=== PATIENT | female | born 1970 | race Caucasian/White ===

== ENCOUNTER 2019-07-08 19:34 | Emergency (ER) | payer OTHER ==
[~2019-07-08] VITALS: Ht 157.5 cm; Wt 85.3 kg
[~2019-07-08 19:34] MED LIST: ALBU.083IS IH; ALBU90I INH; ALBU90OI INH; ALBU90OI6 INH; AZIT250 PO; Albuterol Sulf8.5 GM PO; BUSP10; BUSP15 PO; CEPH500 PO; DILT120; Duoneb 2.5-0.5 M3 ML INH; FLUSAL1005 IH; FLUSAL2505 PO; GUAI100SY; GUAI600T33 PO; HYDACE5 PO; HYDR1TAB94 PO; LEVFLO250 PO; LEVSOD100; LEVSOD100 PO; LEVSOD112 PO; LEVSOD125 PO; LORA10 PO; LORA2 PO; MONT10T PO; MORP10S PO; MULVITMINE; NAPR550 PO; NICO7 TOP; Norco 5-325 Ta1 EACH PO; OXYACE5T PO; PRED10; PRED20 PO; PROC10 PO; Prednisone20 MG PO; Prilosec20 MG PO; RANI150 PO; RXHYD5325 PO; RXHYDACE PO; RXNAPNA550 PO; SULTRIDS PO; TRAM50 PO; TRIAOI IH; Voltaren100 GM TP; Zofran Odt4 MG SL; [UNRECOGNIZED DRUG - OTHER]
[2019-07-08 21:21] LABS: BASOPHILS ABSOLUTE AUTO 0.07 K/mm3 (0.00-0.23); BASOPHILS PERCENT AUTO 1 % (0-2); EOSINOPHILS ABSOLUTE AUTO 0.26 K/mm3 (0.00-0.68); EOSINOPHILS PERCENT AUTO 3 % (0-6); Hematocrit 27.3 % (33.0-51.0); Hemoglobin 7.9 g/dL (11.5-16.0); IMMATURE GRAN ABSOLUTE AUTO 0.03 K/mm3 (0.00-0.10); IMMATURE GRAN PERCENT AUTO 0 % (0-1); LYMPHOCYTES ABSOLUTE AUTO 2.69 K/mm3 (0.84-5.20); LYMPHOCYTES PERCENT AUTO 29 % (21-46); MONOCYTES ABSOLUTE AUTO 0.97 K/mm3 (0.16-1.47); MONOCYTES PERCENT AUTO 10 % (4-13); Mean Corpuscular HGB 20.2 pg (26.0-34.0); Mean Corpuscular HGB Conc 28.9 g/dL (31.5-36.5); Mean Corpuscular Volume 70 fL (80-100); Mean Platelet Volume 8.8 fL (9.1-12.4); NEUTROPHILS PERCENT AUTO 57 % (41-73); Platelet Count 605 K/mm3 (150-400); RDW Standard Deviation 44.9 fL (35.1-46.3); Red Blood Cell Count 3.92 M/mm3 (3.80-5.20); White Blood Cell Count 9.42 K/mm3 (4.00-11.30)
[2019-07-08 21:43] LABS: Alanine Aminotransfer (ALT/SGP 13 U/L (12-78); Albumin, Blood 2.5 g/dL (3.4-5.0); Albumin/Globulin Ratio 0.5 (0.8-1.8); Alk Phos 76 U/L (50-136); Anion Gap 3 mmol/L (6-16); Aspartate Aminotrans (AST/SGOT 17 U/L (12-37); Bilirubin, Total 0.2 mg/dL (0.1-1.0); Blood Urea Nitrogen 10 mg/dL (8-24); Bun/Creatinine Ratio 15.5 (12.0-20.0); CO2, Blood 27 mmol/L (21-32); Calcium, Blood 8.5 mg/dL (8.5-10.1); Chloride, Blood 105 mmol/L (98-108); Creatinine, Blood 0.65 mg/dL (0.40-1.00); Globulin, Blood 5.3 g/dL (2.2-4.0); Glomerular Filtration Rate >60 (60-); Glucose, Blood 74 mg/dL (70-99); Potassium, Blood 3.4 mmol/L (3.5-5.5); Sodium, Blood 135 mmol/L (136-145); Total Protein, Blood 7.8 g/dL (6.4-8.2); Troponin I <0.015 ng/mL (0.000-0.040)
[2019-07-08 22:18] LABS: U Amphetamine Screen DETECTED; U Barbituate Screen Not Detected; U Benzodiazapine Screen Not Detected; U Buprenorphine Screen Not Detected; U Cannabinoids Screen Not Detected; U Cocaine Screen Not Detected; U Methadone Screen Not Detected; U Methamphetamine Screen DETECTED; U Opiates Screen Not Detected; U Oxycodone Screen Not Detected; U Phencyclidine Screen Not Detected; U Propoxyphene Screen Not Detected
[2019-07-09] MEDS ORDERED: Prednisone20 MG PO (00:50)
[2019-07-09] MEDS ORDERED: DOXY100 PO (00:50)
== END 2019-07-09 01:30 | disposition home or self-care (01) ==
LOC: ER 19:34
PROVIDERS: Physician Assistant
DX: J44.1 Chronic obstructive pulmonary disease with (acute) exacerbation (principal); L03.116 Cellulitis of left lower limb; M71.22 Synovial cyst of popliteal space [Baker], left knee; R59.1 Generalized enlarged lymph nodes; F17.210 Nicotine dependence, cigarettes, uncomplicated; Z91.040 Latex allergy status; Z88.6 Allergy status to analgesic agent; Z88.8 Allergy status to other drugs, medicaments and biological substances; Z79.899 Other long term (current) drug therapy
CPT/HCPCS: 36415; 71046; 80053; 83880; 84484; 85025; 93005; 93010; 93971; 94644; 96374; 96375; 99284-25; J1940; J2930

== ENCOUNTER 2020-12-01 01:21 | Emergency (ER) | payer OTHER ==
[~2020-12-01] VITALS: Ht 154.9 cm; Wt 78.0 kg
[~2020-12-01 01:21] MED LIST changes: +DOXY100 PO
[2020-12-01] MEDS ORDERED: Prednisone10 MG PO (01:53)
[2020-12-01] MEDS ORDERED: Vibramycin100 MG PO (03:09)
== END 2020-12-01 03:13 | disposition home or self-care (01) ==
LOC: ER 01:21
DX: L02.413 Cutaneous abscess of right upper limb (principal); J44.9 Chronic obstructive pulmonary disease, unspecified; Z88.6 Allergy status to analgesic agent; Z91.040 Latex allergy status; Z79.899 Other long term (current) drug therapy; Z79.52 Long term (current) use of systemic steroids; Z87.891 Personal history of nicotine dependence
CPT/HCPCS: 10060; 99283-25

== ENCOUNTER 2021-02-24 15:57 | Emergency (ER) | payer OTHER ==
[~2021-02-24] VITALS: Ht 167.6 cm; Wt 86.2 kg
[~2021-02-24 15:57] MED LIST changes: +Prednisone10 MG PO; +Vibramycin100 MG PO
[2021-02-24 16:58] LABS: BASOPHILS ABSOLUTE AUTO 0.09 K/mm3 (0.00-0.23); BASOPHILS PERCENT AUTO 1 % (0-2); EOSINOPHILS ABSOLUTE AUTO 0.18 K/mm3 (0.00-0.68); EOSINOPHILS PERCENT AUTO 1 % (0-6); Hematocrit 36.3 % (33.0-51.0); Hemoglobin 10.5 g/dL (11.5-16.0); IMMATURE GRAN ABSOLUTE AUTO 0.09 K/mm3 (0.00-0.10); IMMATURE GRAN PERCENT AUTO 1 % (0-1); LYMPHOCYTES PERCENT AUTO 21 % (21-46); MONOCYTES ABSOLUTE AUTO 1.55 K/mm3 (0.16-1.47); MONOCYTES PERCENT AUTO 9 % (4-13); Mean Corpuscular HGB 19.2 pg (26.0-34.0); Mean Corpuscular HGB Conc 28.9 g/dL (31.5-36.5); Mean Corpuscular Volume 66 fL (80-100); Mean Platelet Volume 9.7 fL (9.1-12.4); NEUTROPHILS ABSOLUTE AUTO 11.79 K/mm3 (1.96-9.15); NEUTROPHILS PERCENT AUTO 68 % (41-73); Platelet Count 455 K/mm3 (150-400); RDW Coefficient Variation 19.1 % (11.7-14.2); RDW Standard Deviation 43.8 fL (35.1-46.3); Red Blood Cell Count 5.48 M/mm3 (3.80-5.20)
[2021-02-24 17:19] LABS: Alanine Aminotransfer (ALT/SGP 18 U/L (12-78); Albumin, Blood 3.4 g/dL (3.4-5.0); Albumin/Globulin Ratio 0.9 (0.8-1.8); Alk Phos 71 U/L (50-136); Anion Gap 2 mmol/L (6-16); Aspartate Aminotrans (AST/SGOT 9 U/L (12-37); Bilirubin, Total 0.6 mg/dL (0.1-1.0); Blood Urea Nitrogen 17 mg/dL (8-24); Bun/Creatinine Ratio 19.7 (12.0-20.0); CO2, Blood 27 mmol/L (21-32); Calcium, Blood 8.3 mg/dL (8.5-10.1); Chloride, Blood 107 mmol/L (98-108); Creatinine, Blood 0.86 mg/dL (0.40-1.00); Globulin, Blood 3.7 g/dL (2.2-4.0); Glomerular Filtration Rate >60 (60-); Glucose, Blood 82 mg/dL (70-99); Potassium, Blood 3.2 mmol/L (3.5-5.5); Sodium, Blood 136 mmol/L (136-145); Total Protein, Blood 7.1 g/dL (6.4-8.2); Troponin I <0.015 ng/mL (0.000-0.040)
[2021-02-24 20:12] LABS: Source, Urine Clean Catch
[2021-02-24 20:20] LABS: Bilirubin, Urine Neg (Neg); Blood, Urine Neg (Neg); Glucose Qualitative, Urine Neg (Neg); Ketones, Urine 1+ (Neg); Leukocyte Esterase, Urine 2+ (Neg); Nitrite, Urine Neg (Neg); Protein, Urine 1+ (Neg); Urobilinogen, Urine NORM (Normal)
[2021-02-24 20:37] LABS: Appearance, Urine Hazy (Clear); Color, Urine Yellow (P-Yellow)
[2021-02-24 20:55] LABS: Red Blood Cells, Urine Not Seen /hpf (0-2); White Blood Cells, Urine 25-50 /hpf (0-5)
[2021-02-24 20:56] LABS: Amorphous Light (0-Heavy); Bacteria Mod /hpf; Mucus Light (0-Heavy); Squamous Epithelial Cells Mod /hpf (Few)
[2021-02-24] MEDS ORDERED: CEPH500 PO (21:24)
== END 2021-02-24 22:39 | disposition home or self-care (01) ==
LOC: ER 15:57
PROVIDERS: Physician Assistant
DX: N12 Tubulo-interstitial nephritis, not specified as acute or chronic (principal); Z79.52 Long term (current) use of systemic steroids; Z79.899 Other long term (current) drug therapy
CPT/HCPCS: 36415; 71046; 71260; 80053; 81001; 83605; 83880; 84484; 85025; 85379; 87086; 93005; 93010; 93971; 94640; 96365; 99284-25; J0696; Q9967

== ENCOUNTER 2021-07-10 20:49 | Emergency (ER) | payer OTHER ==
[~2021-07-10] VITALS: Ht 154.9 cm; Wt 93.0 kg
== END 2021-07-10 21:09 | disposition left against medical advice (07) ==
LOC: ER 20:49
DX: Z53.21 Procedure and treatment not carried out due to patient leaving prior to being seen by health care provider (principal)

== ENCOUNTER 2022-01-23 21:20 | Inpatient (IN) | payer OTHER ==
[~2022-01-23] VITALS: Ht 154.9 cm; Wt 201.6 kg
[2022-01-23 22:04] LABS: BASOPHILS ABSOLUTE AUTO 0.07 K/mm3 (0.00-0.23); BASOPHILS PERCENT AUTO 0 % (0-2); EOSINOPHILS ABSOLUTE AUTO 0.11 K/mm3 (0.00-0.68); EOSINOPHILS PERCENT AUTO 1 % (0-6); Hematocrit 40.7 % (33.0-51.0); Hemoglobin 12.6 g/dL (11.5-16.0); IMMATURE GRAN PERCENT AUTO 1 % (0-1); LYMPHOCYTES ABSOLUTE AUTO 2.54 K/mm3 (0.84-5.20); LYMPHOCYTES PERCENT AUTO 16 % (21-46); MONOCYTES ABSOLUTE AUTO 1.33 K/mm3 (0.16-1.47); MONOCYTES PERCENT AUTO 9 % (4-13); Mean Corpuscular HGB 25.4 pg (26.0-34.0); Mean Corpuscular Volume 82 fL (80-100); Mean Platelet Volume 10.2 fL (9.1-12.4); NEUTROPHILS ABSOLUTE AUTO 11.42 K/mm3 (1.96-9.15); NEUTROPHILS PERCENT AUTO 74 % (41-73); Platelet Count 302 K/mm3 (150-400); RDW Coefficient Variation 17.9 % (11.7-14.2); RDW Standard Deviation 53.3 fL (35.1-46.3); Red Blood Cell Count 4.96 M/mm3 (3.80-5.20); White Blood Cell Count 15.57 K/mm3 (4.00-11.30)
[2022-01-23 22:23] LABS: Alanine Aminotransfer (ALT/SGP 26 U/L (12-78); Albumin/Globulin Ratio 0.8 (0.8-1.8); Alk Phos 70 U/L (50-136); Anion Gap 7 mmol/L (6-16); Aspartate Aminotrans (AST/SGOT 15 U/L (12-37); Bilirubin, Total 0.4 mg/dL (0.1-1.0); Blood Urea Nitrogen 9 mg/dL (8-24); Bun/Creatinine Ratio 10.9 (12.0-20.0); CO2, Blood 29 mmol/L (21-32); Calcium, Blood 8.6 mg/dL (8.5-10.1); Chloride, Blood 106 mmol/L (98-108); Creatinine, Blood 0.82 mg/dL (0.40-1.00); Globulin, Blood 3.7 g/dL (2.2-4.0); Glomerular Filtration Rate >60 (60-); Glucose, Blood 92 mg/dL (70-99); Potassium, Blood 3.5 mmol/L (3.5-5.5); Sodium, Blood 142 mmol/L (136-145); Total Protein, Blood 6.7 g/dL (6.4-8.2)
[2022-01-24] MEDS ORDERED: GABA100 PO (05:42)
[2022-01-24] MEDS ORDERED: PANT40 PO (05:43)
[2022-01-24] MEDS ORDERED: MONT10T PO (05:44)
--- NOTE | 2022-01-24 17:47 | NUR ---
CARE NOTE THIS NURSE WAS NOTIFIED BY PINO SANTOS CNA THAT PATIENT HAD WOKE UP APPROX 1700 AND REPORTED 10/10 CHEST PAIN. THIS NURSE WENT INTO ROOM, PT REPORTED THAT PAIN HAD SUBSIDED BUT KEPT STATING "THAT WAS SO WEIRD." SHE REPORTED WAKING UP TO 10/10 PAIN AND FELT DIZZY. THERE WAS NO CURRENT PAIN REPORTED AND VITAL SIGNS WERE STABLE. TELE BANANA CARRIER REPORTED THAT THERE WERE NO CHANGES IN TELE. DR. KENDRICK MADE AWARE, ORDERS FOR EKG REQUESTED. SEE EKG REPORT IN CHART. WILL CONTINUE TO MONITOR FOR CHEST PAIN AND WILL PASS ON TO REPORT CHEST PAIN EVENT.
--- NOTE | 2022-01-24 17:53 | NUR ---
SHIFT SUMMARY PT REMAINED ALERT AND ORIENTED X4. SHE WAS VERY LETHARGIC FOR FIRST HALF OF SHIFT AND REPORTED THAT AT BASELINE, SHE FALLS ASLEEP IF NOT PERFORMING ACTIVITY OR TALKING. PT BECAME MORE ALERT DURING SECOND HALF OF SHIFT. UPON ASSUMING CARE, THIS NURSE WAS TOLD THAT PATIENT WAS HAVING 10/10 PAIN RELATED TO RIGHT CHEEK INFECTION. UPON REASSESMENT, PT REPORTED THAT PAIN HAD SUBSIDED AND WAS AT 4/10 BUT DENIED NEEDING MEDICATION FOR PAIN MANAGEMENT. THIS NURSE CONTINUED TO REASSESS PAIN T/O SHIFT AND PT CONTINUED TO DENY PAIN MEDICATION. THE PATIENT WAS NAUSEAOUS THIS AM AND VOMITED, SEE EMAR FOR INTERVENTION. AFTER NAUSEA WAS MANAGED, PT FELL ASLEEP AND CONTINUED TO DO SO WITH EXCEPTION OF PATIENT CARE. WHEN SHE WOKE AT APPROX. 1200, SHE DENIED FEELINGS OF NAUSEA AND STATED THAT SHE WAS "STARVING." SHE MANAGED TO HAVE ADEQUATE PO INTAKE. SPO2 RANGED 90-95% VIA NC UNTIL APPROX 1300 WHEN PATIENT WAS ON ROOM AIR, SPO2 MAINTAINS >90%. TELE MONITORING IN PLACE AND HR IS SINUS RYTHM 90'S. SEE PREVIOUS NOTE FOR CHEST PAIN EVENT/MANAGEMENT. MEDIPORT IN RIGHT CHEST WALL INFUSING NS KVO PER EMAR ORDERS. SHE IS ABLE TO AMBULATE TO BATHROOM SBA TO MANAGE LINES AND IS STEADY ON HER FEET. POWERGLIDE IN RIGHT UPPER ARM IS SALINE LOCKED. WILL CONTINUE TO MONITOR UNTIL REPORT GIVEN. CALL LIGHT IN REACH
--- NOTE | 2022-01-24 22:27 | NUR ---
PATIENT REMAINS IN BED, ON ASSESSEMENT PATIENT NOTED ALERT AND ORIENTED TIMES 4 ABLE TO MAKE ALL NEEDS KNOWN.OXYGEN AT 2 LITERS SAT IN 97%. LUNGS SOUNDS ASSESSED AND WHEEZING BILATERALLY NOTED. BREATHING TREATMENT CALLED AND IN PLACED.BOWEL SOUNDS PATENT.FACE NOTED WITH DECREASED SWELLING AT THIS TIME. CONTINUE TO MEDICATE AND TREAT INFECTION. PATIENT DENIES CHEST PAIN ON ASSESSMENT.CALL LIGHT AND ALL PERSONAL ITEMS WITHIN REACH. BED IN LOWEST POSITION. SAFETY MAINTAINED.
[2022-01-25 04:16] LABS: BASOPHILS ABSOLUTE AUTO 0.02 K/mm3 (0.00-0.23); BASOPHILS PERCENT AUTO 0 % (0-2); EOSINOPHILS PERCENT AUTO 0 % (0-6); Hematocrit 44.8 % (33.0-51.0); Hemoglobin 13.3 g/dL (11.5-16.0); IMMATURE GRAN ABSOLUTE AUTO 0.15 K/mm3 (0.00-0.10); IMMATURE GRAN PERCENT AUTO 1 % (0-1); LYMPHOCYTES ABSOLUTE AUTO 0.51 K/mm3 (0.84-5.20); LYMPHOCYTES PERCENT AUTO 3 % (21-46); MONOCYTES ABSOLUTE AUTO 0.54 K/mm3 (0.16-1.47); MONOCYTES PERCENT AUTO 3 % (4-13); Mean Corpuscular HGB 25.6 pg (26.0-34.0); Mean Corpuscular HGB Conc 29.7 g/dL (31.5-36.5); Mean Corpuscular Volume 86 fL (80-100); Mean Platelet Volume 10.5 fL (9.1-12.4); NEUTROPHILS ABSOLUTE AUTO 17.26 K/mm3 (1.96-9.15); NEUTROPHILS PERCENT AUTO 93 % (41-73); Platelet Count 243 K/mm3 (150-400); RDW Coefficient Variation 17.4 % (11.7-14.2); RDW Standard Deviation 54.9 fL (35.1-46.3); Red Blood Cell Count 5.19 M/mm3 (3.80-5.20); White Blood Cell Count 18.48 K/mm3 (4.00-11.30)
--- NOTE | 2022-01-25 17:36 | NUR ---
SHIFT SUMMARY PT A/O X4 AND COOPERATIVE OF CARE. PT HAD PERIODS OF AGITATION, PT REPORTS "STEROID MEDICATINS MAKE ME GET ANGRY AND I SOMETIMES CANNOT HELP IT," PT EASILY AGITATED. NO REPORT OF CHEST PAIN/PRESSURE THROUGHOUT SHIFT. PT REPORTS SOB WITH EXERTION, SATS DROP TO 80'S WITH EXERTION. O2 SATS DROPPED TO MID 70'S WHILE PT WAS SLEEPING, O2 MOVED FROM NOSE TO MOUTH DUE TO PT BREATHING THROUGH MOUTH WHEN SLEEPING, SATS RETURNED TO 90'S QUICKLY. PT REPORTED PAIN OF RIGHT SIDE OF FACE, TREATED PER EMAR.
[2022-01-26 05:00] LABS: Hematocrit 40.9 % (33.0-51.0); Hemoglobin 12.4 g/dL (11.5-16.0); Mean Corpuscular HGB 25.3 pg (26.0-34.0); Mean Corpuscular HGB Conc 30.3 g/dL (31.5-36.5); Mean Corpuscular Volume 84 fL (80-100); Mean Platelet Volume 10.8 fL (9.1-12.4); Platelet Count 327 K/mm3 (150-400); RDW Coefficient Variation 17.7 % (11.7-14.2); RDW Standard Deviation 53.7 fL (35.1-46.3); White Blood Cell Count 23.46 K/mm3 (4.00-11.30)
[2022-01-26 05:21] LABS: BASOPHILS PERCENT MAN 0 % (0-2); EOSINOPHILS PERCENT MAN 0 % (0-6); LYMPHOCYTES ABSOLUTE MAN 0.93 K/mm3 (0.84-5.20); LYMPHOCYTES PERCENT MAN 4 % (21-46); MONOCYTES ABSOLUTE MAN 0.46 K/mm3 (0.16-1.47); MONOCYTES PERCENT MAN 2 % (4-13); MYELOCYTE ABSOLUTE MAN 0.23 K/mm3 (0.00-0.00); MYELOCYTE PERCENT MAN 1 % (0-0); NEUTROPHILS ABSOLUTE MAN 21.81 K/mm3 (1.96-9.15); SEG NEUTROPHILS PERCENT MAN 93 % (41-73); TOTAL CELLS COUNTED 100
--- NOTE | 2022-01-26 07:20 | NUR ---
NO ACUTE EVENTS OVERNIGHT. PAIN MANAGEMENT CONTINUED WITH ADMINISTRATION OF IV DILAUDID PRN ORDERED. PT REPORTS SIGNIFICANT DECLINE IN DEGREE OF SWELLING TO RIGHT CHEEK AND NECK AND DECREASE IN PAIN SINCE ADMISSION. PT CONTINUES ON 1 LPM NC, COARSE BREATH SOUNDS, NONPRODUCTIVE COUGH AND OBSERVED DYSPNEA WITH MINIMAL EXERTION. APPETITE IS GOOD AND PT'S MOOD WAS MORE JOVIAL THROUGHOUT THE NIGHT THAN THE PREVIOUS DAY. PT STATES THAT HER MOOD IS AFFECTED BY STEROID DOSING. WHEN CONDUCTING AN ASSESSMENT OF PT'S MEDIPORT, THE PORT WOULD NOT FLUSH. I SOUGHT THE ASSISTANCE OF [employer] AND SHE FOUND THE SAME ISSUE. ZAMZAM CHANGED OUT THE BERRY NEEDLE AND THE ISSUE WAS RESOLVED. THE PORT FLUSHES EASILY AND HAS GOOD BLOOD RETURN. CURRENTLY, THE PORT IS HEPARIN LOCKED WITH 50 UNITS OF HEPARIN PER PROTOCOL. THE RUE POWERGLIDE FLUSHES EASILY AND HAS GOOD BLOOD RETURN.
--- NOTE | 2022-01-26 07:48 | NUR ---
PT BP ELEVATED SINCE LAST NIGHT, NOTIFIED AT 0748. AWAITING ORDERS.
[2022-01-26] MEDS ORDERED: CEPH500 PO (14:38)
[2022-01-26] MEDS ORDERED: PANT40 PO (14:42)
[2022-01-26] MEDS ORDERED: LISI20 PO (14:43)
[2022-01-26] MEDS ORDERED: ONDA4ODT MM (14:44)
[2022-01-26] MEDS ORDERED: VISBIOME 112.51 EACH PO (14:46)
[2022-01-26] MEDS ORDERED: PRED20 PO (14:50)
[2022-01-26] MEDS ORDERED: BUDE.25 INH (15:04)
--- NOTE | 2022-01-26 15:55 | NUR ---
DISCHARGE UPDATE DISCHARGE INFORMATION GONE OVER WITH PT AT 1535. PT LEFT UNIT AT 1545 VIA WHEELCHAIR AND ON RA. PT AGREED TO SEAMLESS TUBE DRAWER OXYGEN FROM [facility]. DISCHARGE PACKET WITH PT DURING DISCHARGE. PT BELONGINGS RPEVIOUSLY BAGGED UP AND LEFT WITH PT DAUGHTER. PT PICKED UP BY DAUGHTER AT [facility].
--- NOTE | 2022-01-26 16:02 | NUR ---
Received referral from nurse janitor caretaker (Alyce Cintron) on 01/26/2022. Patient is to discharge 01/26/2022 with orders for home health and elected [facility]. Met with patient to further discuss the above. Patient is agreeable to the above. Discussed homebound status definition with patient. Patient verbalized understanding. Discussed what home health is vs what it is not (in home caregivers/housekeeping). Patient verbalized understanding. Discussed the next steps in the process of an initial assessment to determine frequency of visits. Again patient verbalized understanding. Offered a chance for patient to ask questions regarding the above of which there were none. Gathered all supporting documentation for referral (face sheet, face to face, med list, and H&P) and sent to [facility] for review. No further interventions required. Shannon Crook Referral Liaison
[2022-02-19] MEDS ORDERED: Percocet 5-3251 EACH PO (01:40)
[2022-02-19] MEDS ORDERED: GABA300 PO (01:43)
[2022-02-19] MEDS ORDERED: DOXY100 PO (01:43)
[2022-02-19] MEDS ORDERED: FURO40 PO (01:43)
[2022-02-19] MEDS ORDERED: HYDR10 PO (01:43)
[2022-02-19] MEDS ORDERED: SYMBICORT 160-4.6 GM (01:44)
== END 2022-01-26 15:53 | disposition home health service (06) | DRG 871 ==
LOC: ER 21:20 → PCU 01-24 03:09
PROVIDERS: Family Medicine; Student in an Organized Health Care Education/Training Program; ADMIT Internal Medicine
DX: A41.9 Sepsis, unspecified organism (principal); J96.01 Acute respiratory failure with hypoxia; L03.211 Cellulitis of face; J44.1 Chronic obstructive pulmonary disease with (acute) exacerbation; K21.9 Gastro-esophageal reflux disease without esophagitis; R11.2 Nausea with vomiting, unspecified; J84.89 Other specified interstitial pulmonary diseases; Z28.21 Immunization not carried out because of patient refusal; R65.20 Severe sepsis without septic shock; Z88.8 Allergy status to other drugs, medicaments and biological substances; Z90.49 Acquired absence of other specified parts of digestive tract; Z98.890 Other specified postprocedural states; Z87.891 Personal history of nicotine dependence; Z91.040 Latex allergy status; Z79.51 Long term (current) use of inhaled steroids; Z79.52 Long term (current) use of systemic steroids; Z79.899 Other long term (current) drug therapy
CPT/HCPCS: 36415; 70487; 71045; 80053; 83605; 85025; 87040; 93005; 93010; 94640; 94664; 94760; 94761; 94762; 96365; 96366; 96375; 96376; 99285-25; A9270; C1751; J0690; J0696; J1170; J1642; J1650; J2270; J2405; J2550; J2930; J3370; J7030; J7050; J7120; Q9967

== ENCOUNTER 2022-06-04 09:27 | Day surgery (SDC) | payer OTHER ==
[~2022-06-04 09:27] MED LIST changes: +BUDE.25 INH; +FURO40 PO; +GABA100 PO; +GABA300 PO; +HYDR10 PO; +LISI20 PO; +ONDA4ODT MM; +PANT40 PO; +Percocet 5-3251 EACH PO; +SYMBICORT 160-4.6 GM; +VISBIOME 112.51 EACH PO
== END 2022-06-04 23:22 | disposition home or self-care (01) ==
LOC: WOUND 09:27
DX: I87.2 Venous insufficiency (chronic) (peripheral) (principal); L97.522 Non-pressure chronic ulcer of other part of left foot with fat layer exposed; L97.812 Non-pressure chronic ulcer of other part of right lower leg with fat layer exposed; L97.822 Non-pressure chronic ulcer of other part of left lower leg with fat layer exposed; I73.9 Peripheral vascular disease, unspecified; F17.200 Nicotine dependence, unspecified, uncomplicated; R60.0 Localized edema; J44.9 Chronic obstructive pulmonary disease, unspecified; I11.0 Hypertensive heart disease with heart failure; I50.9 Heart failure, unspecified; Z88.8 Allergy status to other drugs, medicaments and biological substances; Z88.6 Allergy status to analgesic agent; Z91.040 Latex allergy status
CPT/HCPCS: A9270; G0463

== ENCOUNTER 2022-06-11 01:46 | Day surgery (SDC) | payer OTHER | END 2022-06-11 23:53 | disposition home or self-care (01) | LOC: WOUND 01:46 | DX: L97.522 Non-pressure chronic ulcer of other part of left foot with fat layer exposed (principal); L97.822 Non-pressure chronic ulcer of other part of left lower leg with fat layer exposed; L97.222 Non-pressure chronic ulcer of left calf with fat layer exposed; I87.2 Venous insufficiency (chronic) (peripheral); I73.9 Peripheral vascular disease, unspecified; L97.812 Non-pressure chronic ulcer of other part of right lower leg with fat layer exposed; Z72.0 Tobacco use | CPT/HCPCS: 99406; A9270 ==

== ENCOUNTER 2022-07-02 01:27 | Day surgery (SDC) | payer OTHER | END 2022-07-02 23:23 | disposition home or self-care (01) | LOC: WOUND 01:27 | DX: L97.522 Non-pressure chronic ulcer of other part of left foot with fat layer exposed (principal); L97.822 Non-pressure chronic ulcer of other part of left lower leg with fat layer exposed; I87.2 Venous insufficiency (chronic) (peripheral); I73.9 Peripheral vascular disease, unspecified; L97.812 Non-pressure chronic ulcer of other part of right lower leg with fat layer exposed; R60.0 Localized edema; Z72.0 Tobacco use | CPT/HCPCS: 99406; A9270 ==

== ENCOUNTER 2022-08-03 14:42 | Emergency (ER) | payer OTHER ==
[~2022-08-03] VITALS: Ht 160 cm; Wt 85.3 kg
[2022-08-03] MEDS ORDERED: MONT10T PO (15:02)
[2022-08-03] MEDS ORDERED: COMBIVENT RESPIM4 G1 INH (15:02)
[2022-08-03] MEDS ORDERED: EUTHYROX175 MC1 PO (15:02)
[2022-08-03] MEDS ORDERED: PANTOPRAZOLE SO40 M2 PO (15:03)
[2022-08-03] MEDS ORDERED: CARVEDILOL3.125 MG PO (15:03)
[2022-08-03] MEDS ORDERED: SPIRONOLACTONE50 MG PO (15:03)
[2022-08-03] MEDS ORDERED: LOSARTAN POTASS25 M2 PO (15:03)
[2022-08-03 15:31] LABS: BASOPHILS ABSOLUTE AUTO 0.11 K/mm3 (0.00-0.23); BASOPHILS PERCENT AUTO 0 % (0-2); EOSINOPHILS ABSOLUTE AUTO 0.09 K/mm3 (0.00-0.68); EOSINOPHILS PERCENT AUTO 0 % (0-6); Hematocrit 51.9 % (33.0-51.0); Hemoglobin 16.2 g/dL (11.5-16.0); IMMATURE GRAN ABSOLUTE AUTO 0.16 K/mm3 (0.00-0.10); IMMATURE GRAN PERCENT AUTO 1 % (0-1); LYMPHOCYTES ABSOLUTE AUTO 3.91 K/mm3 (0.84-5.20); LYMPHOCYTES PERCENT AUTO 14 % (21-46); MONOCYTES ABSOLUTE AUTO 1.87 K/mm3 (0.16-1.47); MONOCYTES PERCENT AUTO 7 % (4-13); Mean Corpuscular HGB 24.6 pg (26.0-34.0); Mean Corpuscular HGB Conc 31.2 g/dL (31.5-36.5); Mean Corpuscular Volume 79 fL (80-100); Mean Platelet Volume 10.3 fL (9.1-12.4); NEUTROPHILS ABSOLUTE AUTO 21.08 K/mm3 (1.96-9.15); NEUTROPHILS PERCENT AUTO 77 % (41-73); Platelet Count 419 K/mm3 (150-400); RDW Coefficient Variation 20.4 % (11.7-14.2); Red Blood Cell Count 6.58 M/mm3 (3.80-5.20); White Blood Cell Count 27.22 K/mm3 (4.00-11.30)
[2022-08-03 15:43] LABS: Albumin, Blood 3.1 g/dL (3.4-5.0); Albumin/Globulin Ratio 0.7 (0.8-1.8); Bilirubin, Total 0.6 mg/dL (0.1-1.0); Bun/Creatinine Ratio 23.3 (12.0-20.0); Calcium, Blood 8.8 mg/dL (8.5-10.1); Creatinine, Blood 1.03 mg/dL (0.40-1.00); Globulin, Blood 4.4 g/dL (2.2-4.0); Potassium, Blood 4.1 mmol/L (3.5-5.5); Total Protein, Blood 7.5 g/dL (6.4-8.2)
== END 2022-08-03 18:48 | disposition home or self-care (01) ==
LOC: ER 14:42
PROVIDERS: Emergency Medicine
DX: M94.0 Chondrocostal junction syndrome [Tietze] (principal); J44.9 Chronic obstructive pulmonary disease, unspecified; I50.9 Heart failure, unspecified; Z79.899 Other long term (current) drug therapy; Z79.890 Hormone replacement therapy; Z79.52 Long term (current) use of systemic steroids
CPT/HCPCS: 36415; 71045; 71260; 80053; 84484; 85025; 85379; 93005; 93010; Q9967

== ENCOUNTER 2022-11-16 18:29 | Emergency (ER) | payer OTHER ==
[~2022-11-16] VITALS: Ht 154.9 cm; Wt 72.6 kg
[~2022-11-16 18:29] MED LIST changes: +CARVEDILOL3.125 MG PO; +COMBIVENT RESPIM4 G1 INH; +EUTHYROX175 MC1 PO; +LOSARTAN POTASS25 M2 PO; +PANTOPRAZOLE SO40 M2 PO; +SPIRONOLACTONE50 MG PO
== END 2022-11-16 19:14 | disposition left against medical advice (07) ==
LOC: ER 18:29
DX: R07.9 Chest pain, unspecified (principal); Z53.21 Procedure and treatment not carried out due to patient leaving prior to being seen by health care provider
CPT/HCPCS: 93005; 93010

== ENCOUNTER 2023-02-03 01:57 | Inpatient (IN) | payer OTHER ==
[~2023-02-03] VITALS: Ht 154.9 cm; Wt 90.4 kg
[2023-02-03 03:04] LABS: BASOPHILS ABSOLUTE AUTO 0.07 K/mm3 (0.00-0.23); BASOPHILS PERCENT AUTO 0 % (0-2); EOSINOPHILS ABSOLUTE AUTO 0.06 K/mm3 (0.00-0.68); EOSINOPHILS PERCENT AUTO 0 % (0-6); Hematocrit 41.8 % (33.0-51.0); Hemoglobin 12.3 g/dL (11.5-16.0); IMMATURE GRAN ABSOLUTE AUTO 0.13 K/mm3 (0.00-0.10); IMMATURE GRAN PERCENT AUTO 1 % (0-1); LYMPHOCYTES ABSOLUTE AUTO 2.25 K/mm3 (0.84-5.20); LYMPHOCYTES PERCENT AUTO 14 % (21-46); MONOCYTES ABSOLUTE AUTO 1.11 K/mm3 (0.16-1.47); MONOCYTES PERCENT AUTO 7 % (4-13); Mean Corpuscular HGB 24.3 pg (26.0-34.0); Mean Corpuscular HGB Conc 29.4 g/dL (31.5-36.5); Mean Corpuscular Volume 83 fL (80-100); Mean Platelet Volume 10.5 fL (9.1-12.4); NEUTROPHILS ABSOLUTE AUTO 12.05 K/mm3 (1.96-9.15); NEUTROPHILS PERCENT AUTO 77 % (41-73); NRBC ABSOLUTE 0.02 K/mm3 (0.00-0.02); NRBC Auto 0.1 /100 WBC (0.0-0.2); Platelet Count 279 K/mm3 (150-400); RDW Coefficient Variation 19.1 % (11.7-14.2); RDW Standard Deviation 55.9 fL (35.1-46.3); Red Blood Cell Count 5.06 M/mm3 (3.80-5.20); White Blood Cell Count 15.67 K/mm3 (4.00-11.30)
[2023-02-03 03:08] LABS: Base Excess Venous 14.4 mmol/L; Bicarbonate Venous 34.8 mmol/L (24.0-30.0); PCO2 Venous 66.3 mmHg (38-42); pH Blood Venous 7.38 (7.34-7.37)
[2023-02-03 03:30] LABS: Albumin, Blood 2.8 g/dL (3.4-5.0); Albumin/Globulin Ratio 0.7 (0.8-1.8); Bilirubin, Total 0.8 mg/dL (0.1-1.0); Bun/Creatinine Ratio 25.8 (12.0-20.0); C-REACTIVE PROTEIN, EXT RANGE 7.94 mg/dL (0.000-0.300); Calcium, Blood 8.2 mg/dL (8.5-10.1); Creatinine, Blood 0.89 mg/dL (0.40-1.00); Potassium, Blood 3.8 mmol/L (3.5-5.5); Total Protein, Blood 6.8 g/dL (6.4-8.2)
[2023-02-03 03:43] LABS: Influenza A, PCR NEGATIVE (NEGATIVE); Influenza B, PCR NEGATIVE (NEGATIVE); Resp Syncytial Virus, PCR NEGATIVE (NEGATIVE); SARS-Cov-2 (COVID-19) PCR, MMC NEGATIVE (NEGATIVE)
[2023-02-03 06:24] LABS: Anti-Xa UFH, PHA Monitoring <0.10 IU/mL; International Normalized Ratio 1.13; Prothrombin Time Results 11.8 Sec (9.7-11.5)
--- NOTE | 2023-02-03 10:51 | NUR ---
UPDATE: Dr Costa called and notified of pt arrival. Heparin drip not yet started. Avelina in pharmacy notified. Will clarify orders with provider prior to starting at study negative.
[2023-02-03 10:52] VITALS: BP 111/97
[2023-02-03 11:00] VITALS: BP 102/81
--- NOTE | 2023-02-03 11:18 | NUR ---
ARRIVAL TO ICU PT ARRIVES AT 1035 FROM ER FOR DX OF CELLULITIS. PT A&O X3, FALLS ASLEEP FREQUENTLY DURING ASSESSMENT. DIFFICULT TO OBTAIN HX. STATES SHE IS NOT ON HOSPICE. STATES SHE CAME TO HOSPITAL FOR SOB AND CHEST PAIN. REPORTS WOUNDS TO BILATERAL LEGS X 2 YEARS c NO RECENT CHANGES. STATES SHE SMOKES BUT DIFFICULT TO DETERMINE HOW MUCH. LUNGS DIM IN BASES, EXP WHEEZES IN LEFT SIDE. REPORTS HOME O2 USE OF 2L, CURRENTLY ON 5L. O2 SATS DIFFICULT TO OBTAIN. READS 91-92% INTERMITTANTLY. ST, RATE 110-120'S. BP STABLE. ABD OBESE, SOFT, NON TENDER. BT X 4. BILATERAL DISCOLORATION BTK, ULCERS BILATERALLY, SEE SKIN ASSESSMENT AND PHOTOS IN CHART. DISCOLORATION NOTED TO BILATERAL LOWER ARMS WELL. PIV X 2. PT STATUS CHANGED TO MED BY DR VILLATORO. WILL CONTINUE TO MONITOR.
[2023-02-03 12:42] VITALS: BP 109/74
--- NOTE | 2023-02-03 14:52 | NUR ---
PROVIDER UPDATE: Pt crying out and writhing in bed due to reported chest pain. Dr Costa called and notified. Provider states this is the same pain pt has been complaining of. New order for fentanyl PRN.
--- NOTE | 2023-02-03 15:03 | NUR ---
PROVIDER UPDATE: Pt informed RN that she is allergic to fentanyl and "bad things happen" when she takes it. Dr Costa called and notified. No new orders.
[2023-02-03 15:06] VITALS: BP 102/80
[2023-02-03 16:14] VITALS: BP 102/82
--- NOTE | 2023-02-03 16:18 | NUR ---
SHIFT SUMMARY/TRANFER TO MEDICAL FLOOR PT DROWSY DURING THE MORNING AT ADMISSION, DIFFICULT TO OBTAIN ACCURATE HX. HAD EPISODE OF CHEST WALL PAIN, MEDICATED c ROXINOL c MINIMAL RELIEF. DR VILLATORO NOTIFIED. NO ADDITIONAL ORDERS. SO ABLE TO HANGING FLAGS DECORATOR PT BREATHING. PT THEN STATES PAIN IMPROVED. CALM AND COOPERATIVE. ECHO AND JUDE US COMPLETE THIS SHIFT. REMAINS ON 5L VIA NC, O2 SATS DIFFICULT TO OBTAIN, 88-95%. BP STABLE. ST ON MONITOR. 450 ML OUT VIA PUREWICK. REPORT TO JOSE CANTU. PT TRANSFERRED TO Replaced by [facility] c ALL BELONGINGS.
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
[2023-02-03 20:33] VITALS: BP 97/78
[2023-02-04 02:05] VITALS: BP 101/85
[2023-02-04 04:54] LABS: BASOPHILS ABSOLUTE AUTO 0.08 K/mm3 (0.00-0.23); BASOPHILS PERCENT AUTO 1 % (0-2); EOSINOPHILS ABSOLUTE AUTO 0.03 K/mm3 (0.00-0.68); EOSINOPHILS PERCENT AUTO 0 % (0-6); Hematocrit 40.2 % (33.0-51.0); Hemoglobin 11.8 g/dL (11.5-16.0); IMMATURE GRAN ABSOLUTE AUTO 0.14 K/mm3 (0.00-0.10); IMMATURE GRAN PERCENT AUTO 1 % (0-1); LYMPHOCYTES ABSOLUTE AUTO 1.69 K/mm3 (0.84-5.20); LYMPHOCYTES PERCENT AUTO 10 % (21-46); MONOCYTES ABSOLUTE AUTO 1.51 K/mm3 (0.16-1.47); MONOCYTES PERCENT AUTO 9 % (4-13); Mean Corpuscular HGB 24.2 pg (26.0-34.0); Mean Corpuscular HGB Conc 29.4 g/dL (31.5-36.5); Mean Corpuscular Volume 82 fL (80-100); Mean Platelet Volume 10.2 fL (9.1-12.4); NEUTROPHILS ABSOLUTE AUTO 12.94 K/mm3 (1.96-9.15); NEUTROPHILS PERCENT AUTO 79 % (41-73); NRBC ABSOLUTE 0.02 K/mm3 (0.00-0.02); NRBC Auto 0.1 /100 WBC (0.0-0.2); Platelet Count 261 K/mm3 (150-400); RDW Coefficient Variation 18.8 % (11.7-14.2); RDW Standard Deviation 54.7 fL (35.1-46.3); Red Blood Cell Count 4.88 M/mm3 (3.80-5.20); White Blood Cell Count 16.39 K/mm3 (4.00-11.30)
[2023-02-04 05:24] LABS: Albumin, Blood 2.6 g/dL (3.4-5.0); Albumin/Globulin Ratio 0.7 (0.8-1.8); Bun/Creatinine Ratio 21.4 (12.0-20.0); Calcium, Blood 8.5 mg/dL (8.5-10.1); Creatinine, Blood 1.26 mg/dL (0.40-1.00); Globulin, Blood 3.8 g/dL (2.2-4.0); Potassium, Blood 4.7 mmol/L (3.5-5.5); Thyroid Stimulating Hormone 7.87 uIU/mL (0.360-4.800); Total Protein, Blood 6.4 g/dL (6.4-8.2)
[2023-02-04 07:24] VITALS: BP 100/73
--- NOTE | 2023-02-04 13:25 | NUR ---
Spoke with Pt's Primary RN Lina and discussed case earlier this AM. Spoke with Dr Costa and discussed case. Pt would benfit from supportive visit at this time. Pt just recently revoked hospice services. Attempted to see Pt. Pt currently receiving Power [place] placement from [employer]. Pt agreeable for this RN to visit at a later time. Spoke with RN Martinez Mooney and discussed case. Palliative Care will F/U for supportive visits.
[2023-02-04 15:42] VITALS: BP 109/94
--- NOTE | 2023-02-04 17:47 | NUR ---
SHIFT SUMMARY: C/O CHRONIC L UPPER CHEST PAIN, ALWAYS 9/10, MEDICATED WITH ROXANOL WITH SOME RELIEF BUT MOSTLY SEDATION. PLACED ON TELEMETRY AFTER ANIMAL REHABILITATOR VISIT, HAS BEEN SINUS TACH IN 110'S, STARTED ON DIGOXIN IV. BRITTNEY POWERGLIDE IV PLACED IN ORDER TO INFUSE VANCOMYCIN. INPATIENT WOUND CONSULT PLACED. PUREWICK TO MANAGE URINE. O2 @ 4.5-5 L/MIN NC TO MAINTAIN SATS > 90%, RECEIVING NEB TREATMENTS.
--- NOTE | 2023-02-04 19:00 | NUR ---
REQUEST FOR RECORDS OF PREVIOUS HOSPITALIZATION FAXED TO [facility].
[2023-02-04 20:19] VITALS: BP 113/84
[2023-02-05 03:19] LABS: Base Excess Venous 10.4 mmol/L; Bicarbonate Venous 31.5 mmol/L (24.0-30.0); PCO2 Venous 65.4 mmHg (38-42); pH Blood Venous 7.35 (7.34-7.37)
[2023-02-05 04:06] LABS: Hematocrit 37.2 % (33.0-51.0); Hemoglobin 11.1 g/dL (11.5-16.0); Mean Corpuscular HGB 24.6 pg (26.0-34.0); Mean Corpuscular HGB Conc 29.8 g/dL (31.5-36.5); Mean Corpuscular Volume 83 fL (80-100); Mean Platelet Volume 10.9 fL (9.1-12.4); NRBC ABSOLUTE 0.06 K/mm3 (0.00-0.02); NRBC Auto 0.4 /100 WBC (0.0-0.2); Platelet Count 258 K/mm3 (150-400); RDW Coefficient Variation 19.3 % (11.7-14.2); RDW Standard Deviation 55.1 fL (35.1-46.3); Red Blood Cell Count 4.51 M/mm3 (3.80-5.20); White Blood Cell Count 16.49 K/mm3 (4.00-11.30)
[2023-02-05 04:34] LABS: Albumin, Blood 2.4 g/dL (3.4-5.0); Albumin/Globulin Ratio 0.6 (0.8-1.8); Bilirubin, Total 1.4 mg/dL (0.1-1.0); Bun/Creatinine Ratio 25.2 (12.0-20.0); Calcium, Blood 8.7 mg/dL (8.5-10.1); Creatinine, Blood 1.15 mg/dL (0.40-1.00); Globulin, Blood 3.7 g/dL (2.2-4.0); Magnesium, Blood 1.8 mg/dL (1.6-2.4); Phosphorus, Blood 3.2 mg/dL (2.5-4.9); Potassium, Blood 4.4 mmol/L (3.5-5.5); Total Protein, Blood 6.1 g/dL (6.4-8.2)
[2023-02-05 04:43] VITALS: BP 122/86
--- NOTE | 2023-02-05 05:55 | NUR ---
SHIFT SUMMARY 52 YR F ADMITTED ON 02/03/23 FOR BLE CELLULITIS. FULL CODE. PT CAME FROM HOME WHERE SHE WAS ON HOSPICE BUT SHE IS NOW A FULL CODE. SHE HAS BEEN HAVING RESPIRATORY DISTRESS FOR THE ENTIRETY OF THIS SHIFT. SHE C/ CHEST PAIN EXPLAINING THAT IT FEELS LIKE THERE IS A FLAP IN HER CHEST THAT KEEPS CLOSING AND CAUSING HER TO NOT BE ABLE TO BREATHE. WHEN THIS HAPPENS SHE PANICS AND BEGINS TO SHAKE AND RR GOES UP. RESPIRATORY THERAPY HAS BEEN IN THE PT'S ROOM MULTIPLE TIMES THIS SHIFT BUT PT CONTINUES TO REMOVE HER NASAL CANULA, AEROSOL MASK AND REFUSED CPAP AFTER REQUESTING IT. PT IS UNABLE TO TAKE ATIVAN, VALIUM, AND FENTANYL SO ORDER FOR VISTIRIL WAS OBTAINED FOR ANXIETY. DR. PABLO WAS CONSULTED AND THE DECISION WAS MADE TO TRANSFER TO PCU.
[2023-02-05 08:10] VITALS: BP 96/70
--- NOTE | 2023-02-05 10:04 | NUR ---
Pt was quite drowsy at time of bedside report, 7 am. Afterwards she was more awake, and able to sit up and eat breakfast, communincate her needs, and take oral medications with water. She c/o pain 810 "all over", especially in her legs where she has open wounds. Given roxanol for pain and at this time she is drowsy, but easily awakened and states that her pain is better.
[2023-02-05 11:19] VITALS: BP 110/70
--- NOTE | 2023-02-05 11:47 | NUR ---
purwick suction was not at level sufficient to evacuate urine. Pt was given bed bath and pericare for urinary incontinence. She c/o pain and discomfort in her chest and legs during the bath and linen change. Attends placed and new purwick was applied. Urine is being evacuated at 80 mmHG suction.
--- NOTE | 2023-02-05 14:27 | NUR ---
Call to medical floor to track down the missing IVPB vancomycin.
--- NOTE | 2023-02-05 14:34 | NUR ---
Brief supportive visit this afternoon. Spoke with Primary RN Ani and discussed case. Pt resting in bed and is A&OX3. Pt struggles with reason for hospital stay but able to appropriately verbalize, place, and current year. Pt appears somnolent and struggles with remaining awake. Pt does wake long enough to reports she is and has several children ranging from 18 years of age to 37. Ended visit to allow Pt to rest. Palliative Care will remain available
[2023-02-05 14:38] LABS: Magnesium, Blood 2.1 mg/dL (1.6-2.4); Potassium, Blood 4.3 mmol/L (3.5-5.5)
--- NOTE | 2023-02-05 14:52 | NUR ---
Requiring 10 l/min of O2 to keep spo2 at least 88%. The pt is pulling her O2 out of her nose, says that it is "too much." Gave her encouragement to deep breathe and cough, but she does so with very minimal effort. STates having a lot of pain. Given Morphine sublingually for pain, also in anticipation of wound care which will be given within the hour, per wound care nurse. Pt was given an incentive spirometer to encourage lung toilet, but the pt declined at this time due to her pain. Declines repositioning, declines elevation of HOB at this time. Her son is at the bedside.
--- NOTE | 2023-02-05 14:57 | NUR ---
Pt repositioned in high barber's and spo2 improved to 91%, still on 10 l/min.
[2023-02-05 14:58] VITALS: BP 108/65
--- NOTE | 2023-02-05 15:35 | NUR ---
Leeanne, wound care nurse is here to see the patient.
--- NOTE | 2023-02-05 16:05 | NUR ---
WOUND CARE BLE ULCERS CLEANSED DERMAL WOUND, RINSED NS, MEDIHONEY TO WOUND BEDS COVERED WITH ABD, ROLLED GAUZE BANDANET. CHANGE DRESSING EVERY OTHER DAY L DORSAL FOOT CULTURED. WOUND PHOTOS IN CHART. ORDERS IN [facility]
--- NOTE | 2023-02-05 16:12 | NUR ---
Pt is sleeping, respirations are even and unlabored. Spo2 96% on 10 l/min delivery; titrated down to 8 l/min. Sinus tachycardia, 105 bpm noted bedside telemetry.
--- NOTE | 2023-02-05 18:13 | NUR ---
Pt using incentive spirometer at this time. spo2 87% on 8 l/min. She finished a quarter of her dinner.
--- NOTE | 2023-02-05 18:16 | NUR ---
Most of the shift the pt has been sleeping, minimally communicative, in between care and visits with her family this evening. She has been sleepy, withdrawn at occasionally anxious, particularly whenever she is painful. Pain relief after dose of roxanol. She declined the fentanyl patch today, stated this afternoon that she was just too scared to take it because of the side effects which she experienced before. Did use the Incentive spirometer this evening, and agreed to repositioning to help with her oxygenation. She declined OOB to chair, declined sitting on side of bed for meals every time it was suggested to her. She has pain whenever she repositions. Juan, her male vp security, states that she is normally on daily steriods which help a lot with her pain and with her breathing.
--- NOTE | 2023-02-05 18:46 | NUR ---
Pt agreed to get OOB to recliner chair. Tolerated the activity fairly well; herat rate up to 120 bpm during it, and noted dyspnea, but she was smiling and joking a bit after she got up. Used gait belt and 2 staff members for stability, but required only minimal assistance to stand, step over to chair and sit down.
[2023-02-05 19:42] VITALS: BP 93/72
[2023-02-05 23:52] VITALS: BP 126/77
[2023-02-06] VITALS (7 sets, daily range): BP systolic 92–164; BP diastolic 62–90
--- NOTE | 2023-02-06 03:32 | NUR ---
UPDATE PT UNCOOPERATIVE WITH KEEPING NC IN NOSE OR MOUTH RESULTING IN DROPPING OF SPO2 <85%. PT NOTED TO PULL NC OUT OF NOSE/MOUTH AND LET REST ON BED ON SEVERAL OCCASIONS T/O THE NIGHT. NC FREQUENTLY PLACED BACK IN NOSE OR MOUTH BY THIS RN TO MAINTAIN SPO2 >90%. PT AND SPOUSE REPEATEDLY EDUCATED ON NEED TO KEEP NC IN NOSE OR MOUTH IN ORDER TO MAINTAIN SPO2 >90%. IF EPISODES CONTINUE, WILL APPROACH MATTER WITH AIR TRAFFIC SUPERVISOR DENISENE.
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
[2023-02-06 06:31] LABS: Bilirubin, Total 1.2 mg/dL (0.1-1.0); Creatinine, Blood 1.09 mg/dL (0.40-1.00); Phosphorus, Blood 3.4 mg/dL (2.5-4.9); Total Protein, Blood 6.4 g/dL (6.4-8.2)
[2023-02-06 06:40] LABS: Potassium, Blood 3.8 mmol/L (3.5-5.5)
[2023-02-06 06:49] LABS: Albumin, Blood 2.9 g/dL (3.4-5.0); Albumin/Globulin Ratio 0.8 (0.8-1.8); Bun/Creatinine Ratio 24.8 (12.0-20.0); Calcium, Blood 8.8 mg/dL (8.5-10.1); Globulin, Blood 3.5 g/dL (2.2-4.0); Magnesium, Blood 2.1 mg/dL (1.6-2.4)
--- NOTE | 2023-02-06 07:49 | NUR ---
Pt is a little sleepy this morning, withdrawn, and engages at times in conversation. At first refused breakfast on account of believing that it would require her to get up to the side of the bed or to the chair. When she realized that she could eat sitting up in the bed, she agreed. Pt was boosted up higher to appropriate positioning for eating and began to eat.
--- NOTE | 2023-02-06 09:38 | NUR ---
Pt is anxious, withdrawn, irritable and painful. MEdications given per PRN orders for anxiety and pain. She is lying in bed, said that she needed to have a BM on the bedside commode but just before the activity, said that she just didn't want to do it; she is afraid of how much pain it will cause her to move around. STates that her pain is no where near being controlled like it was before.
--- NOTE | 2023-02-06 10:05 | NUR ---
Pt c/o feeling discomfort on her back and side. Pt was repositioned, purwick was changed, and alfaro pad and attends were changed. Repositioned to her right side-lying position, with pillows behind her back for support, and both legs elevated on pillows. HOB elevated to pt's stated level of comfort.
--- NOTE | 2023-02-06 11:04 | NUR ---
Pt appears to be napping, but she awakens easily.
[2023-02-06 12:36] LABS: Vancomycin, Trough 19.6 ug/mL (5.0-10.0)
--- NOTE | 2023-02-06 14:14 | NUR ---
Outpatient [employer] case management rn here to assess the patient; however, Sulaiman is having difficulty staying awake long enough to have a meaninful conversation.
--- NOTE | 2023-02-06 15:27 | NUR ---
Pt pulled oxygen off of her nose while somnulent, and spo2 dropped to 70%. The pt was apparently sleeping, when I went into the room she roused when I replaced the nasal cannula. Spo2 recovered to 93%.
--- NOTE | 2023-02-06 15:52 | NUR ---
REPOSITIONED SUPINE. She remains somnulent, still on 10 l/min of oxygen, maintaining spo2 93%. When awakened, she is withdrawn, minimally conversant.
[2023-02-06 17:56] LABS: PCO2 Arterial 55.2 mmHg (35-45); PO2 Arterial 53.8 mmHg (80-100); pH Blood Arterial 7.48 (7.35-7.45)
[2023-02-06 18:31] LABS: Vancomycin, Peak 40.7 ug/mL (20.0-40.0)
[2023-02-07 03:58] VITALS: BP 114/74
[2023-02-07 04:49] LABS: Albumin, Blood 3.4 g/dL (3.4-5.0); Bilirubin, Total 1.1 mg/dL (0.1-1.0); Bun/Creatinine Ratio 24.5 (12.0-20.0); Calcium, Blood 9.1 mg/dL (8.5-10.1); Creatinine, Blood 1.02 mg/dL (0.40-1.00); Globulin, Blood 3.3 g/dL (2.2-4.0); Magnesium, Blood 2.1 mg/dL (1.6-2.4); Potassium, Blood 3.9 mmol/L (3.5-5.5); Total Protein, Blood 6.7 g/dL (6.4-8.2)
--- NOTE | 2023-02-07 07:15 | NUR ---
SHIFT SUMMARY PATIENT ALERT AND ORIENTED X4. IS VERY WITHDRAWN AND WISPERS TO COMMUNICATE. PATIENT DID NOT TOLERATE BEING ON CPAP, PLACED ON VENTURI MASK OVERNIGHT. PATIENT IS CURRENTLY ON 5 LITERS O2 VIA NC. HEART HAS BEEN SINUS TACH ON TELEMETRY. VITAL SIGNS STABLE. WILL CONTINUE TO MONITOR. CALL LIGHT WITHIN REACH.
[2023-02-07 08:52] VITALS: BP 119/97
--- NOTE | 2023-02-07 10:40 | NUR ---
morphine given SL before wound care done by ALONDRA Fallon from wound clinic.
--- NOTE | 2023-02-07 11:49 | NUR ---
Pt is sitting up in bed, eating her lunch. States that her pain is better. Wound care and dressing changes on the legs were completed by Leeanne wound care clinic RN.
--- NOTE | 2023-02-07 12:05 | NUR ---
Spiritual care visit conducted. Patient is lying in bed and alert. She is having a breathing treatment down and so communication is strained. Patient is able to state that she is having a difficult time and would appreciate prayer. Patient voices appreciation for the prayer and requests that I come back again. I will continue to remain available to patient and family.
[2023-02-07 12:53] VITALS: BP 108/77
--- NOTE | 2023-02-07 13:58 | NUR ---
1300 Unfortunately the purewick suction system found to not be closed; pt has had urinary incontinence which was not measured because of that problem. Resolved the issue and now it is working. The pt was given pericare and attends and linen change for the soiling. She declined to get OOB for any care
--- NOTE | 2023-02-07 14:50 | NUR ---
Pt is sleeping. Easily arousable. Has been eating meals today. STayed awake throughout the morning, until after she was given medication and wound care was completed.
--- NOTE | 2023-02-07 16:38 | NUR ---
WOUND CARE DRESSINGS CHANGED PER ORDER. EDNAHONEY IS WORKING WELL TO SOFTEN AND REMOVE SLOUGH IN WOUND BEDS. PT PREMEDICATED FOR PAIN WITH IV MORPHINE. EMOTIONALLY LABILE DURING CHANGE AND REPORTED HIGH LEVELS OF PAIN. SEVERAL BREAKS WERE TAKEN AND PT ENCOURAGED TO PAUSE AND BREATH. NEXT CHANGE DUE 02/09
--- NOTE | 2023-02-07 18:47 | NUR ---
Pt states that she feels like her pain is managed at this time. Declines OOB for meal to chair, or to commode. STates that she is passing some gas today. Poor appeitite at dinner. Asking for ice chips, which she is taking by herself. Remains withdrawn, but more alert and less sleepy. Minimally communicative.
[2023-02-07 20:14] VITALS: BP 119/86
[2023-02-08 03:25] VITALS: BP 102/81
--- NOTE | 2023-02-08 05:11 | NUR ---
END OF SHIFT PT TREATED FOR PAIN X'S 1, VSS, AFEBRILE, NO ISSUES OVERNIGHT, DID FINE WITH HFNC 10LPM, REFUSED BIPAP, UP TO BSC FOR BM WITHOUT INCIDENT
[2023-02-08 06:26] LABS: Alanine Aminotransfer (ALT/SGP 152 U/L (12-78); Albumin, Blood 3.8 g/dL (3.4-5.0); Albumin/Globulin Ratio 1.3 (0.8-1.8); Alk Phos 117 U/L (50-136); Anion Gap 3 mmol/L (6-16); Aspartate Aminotrans (AST/SGOT 73 U/L (12-37); Bilirubin, Total 1.3 mg/dL (0.1-1.0); Blood Urea Nitrogen 29 mg/dL (8-24); Bun/Creatinine Ratio 27.9 (12.0-20.0); CO2, Blood 43 mmol/L (21-32); Calcium, Blood 9.4 mg/dL (8.5-10.1); Chloride, Blood 84 mmol/L (98-108); Creatinine, Blood 1.04 mg/dL (0.40-1.00); Digoxin (Lanoxin) 1.76 ug/mL (0.80-2.00); Glomerular Filtration Rate 64 (60-); Glucose, Blood 111 mg/dL (70-99); Magnesium, Blood 2.2 mg/dL (1.6-2.4); Potassium, Blood 3.4 mmol/L (3.5-5.5); Sodium, Blood 130 mmol/L (136-145); Total Protein, Blood 6.8 g/dL (6.4-8.2)
[2023-02-08 08:44] VITALS: BP 111/71
[2023-02-08 12:47] VITALS: BP 104/79
[2023-02-08 15:38] VITALS: BP 125/91
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
[2023-02-08 20:11] VITALS: BP 119/82
[2023-02-08 23:18] VITALS: BP 112/90
[2023-02-09] VITALS (7 sets, daily range): BP systolic 103–147; BP diastolic 83–111
[2023-02-09 04:34] LABS: Hematocrit 33.1 % (33.0-51.0); Hemoglobin 10.2 g/dL (11.5-16.0); Mean Corpuscular HGB 24.9 pg (26.0-34.0); Mean Corpuscular HGB Conc 30.8 g/dL (31.5-36.5); Mean Corpuscular Volume 81 fL (80-100); Mean Platelet Volume 10.1 fL (9.1-12.4); NRBC ABSOLUTE 0.03 K/mm3 (0.00-0.02); NRBC Auto 0.2 /100 WBC (0.0-0.2); Platelet Count 239 K/mm3 (150-400); RDW Coefficient Variation 20.4 % (11.7-14.2); White Blood Cell Count 12.05 K/mm3 (4.00-11.30)
[2023-02-09 04:56] LABS: Albumin, Blood 3.9 g/dL (3.4-5.0); Albumin/Globulin Ratio 1.3 (0.8-1.8); Bilirubin, Total 0.9 mg/dL (0.1-1.0); Bun/Creatinine Ratio 34.3 (12.0-20.0); Calcium, Blood 9.5 mg/dL (8.5-10.1); Creatinine, Blood 1.05 mg/dL (0.40-1.00); Magnesium, Blood 2.5 mg/dL (1.6-2.4); Potassium, Blood 3.5 mmol/L (3.5-5.5); Total Protein, Blood 6.9 g/dL (6.4-8.2)
--- NOTE | 2023-02-09 06:17 | NUR ---
SHIFT SUMMARY PATIENT ALERT, ORIENTED x2-3. PATIENT IS VERY SOFT SPOKEN AND HARD TO UNDERSTAND AT TIMES BUT IS ABLE TO MAKE NEEDS KNOWN. VITALS STABLE, PATIENT ON 10-12L HFNC WITH O2 SAT LOW TO MID 90s. PATIENT FREQUENTLY TAKES NC OUT OF NOSE AND WILL DESAT TO LOW 80s BUT IS ABLE TO RECOVER QUICKLY ONCE NC IS PLACED BACK IN NOSE. DENIES CHEST PAIN DURING THE NIGHT, HR 100-110s. PUREWICK IN PLACE WITH ADEQUATE OUTPUT, INCONTINENT VOIDS ONLY D/T PLACEMENT ISSUES. PATIENT REPORTING ABDOMINAL PAIN/CONSITPATION DURING THE NIGHT BUT WAS ABLE TO HAVE 2 BOWEL MOVEMENTS PER PCT. MEDICATED x1 FOR PAIN WITH RELIEF. LOWER LEG WOUNDS REMAINED WRAPPED WITH DRESSINGS C/D/I, PATIENT BEING FOLLOWED BY WOUND CARE RNs. TURNED Q2. PATIENT'S SIGNIFICANT OTHER AT BEDSIDE DURING THE NIGHT. NO OTHER CHANGES, WILL REPORT TO DAY SHIFT RN.
--- NOTE | 2023-02-09 09:30 | NUR ---
CARE ASSUMPTION This RN assumed care at 0700. vital signs stable. patient is alert and oriented x4. patient reports pain in abd and bottom. patient medicated per emar. per patient after having a bowel movement this morning, it helped with her abdominal pain. Patient reports no chest pain/pressure. Patient will desat with exertion, but is able to recover. See shift assessment for further detials. Patient call light within reach and bed in lowest position.
--- NOTE | 2023-02-09 13:35 | NUR ---
WOUND CARE This RN did the wound care per gas blender nurse note and oders. Patient tolerated well, and did not need to be medicated before this dressing change and cleaning.
--- NOTE | 2023-02-09 18:13 | NUR ---
SHIFT SUMMARY Patient neuro remains intact and unchanged this shift. Patient has been off and on sleeping this afternoon. Patient put BIPAP on this evening. Son and daughter visited patient and encouraged patient to wear it. Patient sleeping in room when dinner trays arrived and patients tray is saved in the pantry. Patient vital signs stable. No acute changes this shift. call light within reach and bed in lowest position. Plan of care is up to date. Patient did have a couple unmeasured voids due to purewick not working properly, see I&Os.
[2023-02-10 04:16] VITALS: BP 123/87
--- NOTE | 2023-02-10 06:15 | NUR ---
SHIFT SUMMARY PATIENT WAKES TO VERBAL STIMULI BUT LETHARGIC T/O THE NIGHT, WILL FALL ASLEEP DURING CONVERSATION AND ONLY SHAKE HEAD TO ANSWER QUESTIONS. VITALS STABLE. PATIENT WORE CPAP FOR APPROXIMATELY 8 HOURS, TITRATED NC TO 6L, O2 SAT >90%. DENIES CHEST PAIN OR SHORTNESS OF BREATH. PUREWICK REMAINS IN PLACE WITH ADEQUATE OUTPUT. PATIENT ABLE TO HAVE BOWEL MOVEMENT THIS SHIFT. TURNED Q2. NO OTHER CHANGES, WILL REPORT TO DAY SHIFT RN.
[2023-02-10 07:53] VITALS: BP 112/85
[2023-02-10 11:14] VITALS: BP 129/99
--- NOTE | 2023-02-10 11:51 | NUR ---
CARE ASSUMPTION This RN assumed care at 0700. vital sings stable. tele sinus rhythm 90s. spo2 >88% on 10-12l nassal cannula. patient desats with activity but is able to recover with deep breathing and turning oxygen up as needed. Patient is alert and oriented 2-3. patient stated wrong month and day, but got the year correct. patient stated correct president. patient also did not know she was at the hospital and this rn oriented to her location. Patient reports no pain, chest pain/pressure or shortness of breath at rest, but has shortness of breath with activity. patient has wounds, see photos in chart and wound care orders. see shift assessment for further detials. [employer] wick system changed this am. patient had a bed bath and linen change. patient has been repositioning every two hours. patient encouraged by this RN to get out of bed and sit in chair, but patient refused. patient significant other has been at bedside since this RN arrival and has remained there. MD Fuentesck in to see patient and discussed plan of care. Plan of care is up to date. Call light is within reach and bed in lowest position.
[2023-02-10 15:10] VITALS: BP 122/99
--- NOTE | 2023-02-10 18:13 | NUR ---
SHIFT SUMMARY Patient neuro remains intact, no neuro changes this shift. patient reports no pain, chest pain/pressure, or shortness of breath this shift. patient had a bed bath and linen change. patient worked with physical therapy. no acute changes this shift. call light is within reach and bed in lowest position.
[2023-02-10 19:43] VITALS: BP 116/90
[2023-02-11] VITALS (7 sets, daily range): BP systolic 107–140; BP diastolic 78–98
[2023-02-11 03:59] LABS: Hematocrit 34.8 % (33.0-51.0); Hemoglobin 10.3 g/dL (11.5-16.0); Mean Corpuscular HGB 24.1 pg (26.0-34.0); Mean Corpuscular HGB Conc 29.6 g/dL (31.5-36.5); Mean Corpuscular Volume 81 fL (80-100); Mean Platelet Volume 9.9 fL (9.1-12.4); Platelet Count 312 K/mm3 (150-400); RDW Coefficient Variation 20.2 % (11.7-14.2); Red Blood Cell Count 4.28 M/mm3 (3.80-5.20); White Blood Cell Count 11.94 K/mm3 (4.00-11.30)
[2023-02-11 04:37] LABS: Albumin, Blood 4.4 g/dL (3.4-5.0); Anion Gap 3 mmol/L (6-16); Blood Urea Nitrogen 45 mg/dL (8-24); Bun/Creatinine Ratio 46.1 (12.0-20.0); CO2, Blood 38 mmol/L (21-32); Calcium, Blood 9.5 mg/dL (8.5-10.1); Chloride, Blood 97 mmol/L (98-108); Creatinine, Blood 0.98 mg/dL (0.40-1.00); Glomerular Filtration Rate 69 (60-); Glucose, Blood 155 mg/dL (70-99); Magnesium, Blood 2.9 mg/dL (1.6-2.4); Phosphorus, Blood 3.2 mg/dL (2.5-4.9); Potassium, Blood 2.9 mmol/L (3.5-5.5); Sodium, Blood 138 mmol/L (136-145)
--- NOTE | 2023-02-11 06:00 | NUR ---
SHIFT SUMMARY PATIENT LETHARGIC FOR MOST OF SHIFT. VITALS STABLE, PATIENT ON 8-10L HFNC AND PERIODICALLY WEARS CPAP. PATIENT BECOMES MORE LETHARGIC WHEN CPAP IS NOT WORN. SPO2 >90%, PATIENT WILL TAKE O2 OUT OF NOSE AND WILL DESAT INTO MID 80s. PUREWICK IN PLACE WITH ADEQUATE OUTPUT. PATIENT HAVING SOFT BOWEL MOVEMENTS T/O NIGHT. SIGNIFICANT OTHER AT BEDSIDE DURING THE NIGHT. NO OTHER CHANGES. WILL REPORT TO DAY SHIFT RN.
--- NOTE | 2023-02-11 08:42 | NUR ---
AM NOTE Pt alert, oriented to self, pt not sure of date/place. Pt slow to respond, mumbles at times. Pt reports sob, spo2 85-90% on 8l o2 via nc, titrated to 9l o2 via nc, 90-91%, ls dim, exp wheezes noted to bilateral upper lobes. Pt reports pain, medicated per emar. Pt denies chest pain/pressure, nauses, dizziness and numb/tingling. Tele sinus 90's, bp stable, murmur noted, ble edema trace noted. Abd distended, +bt, tender. Other vss. No other acute changes noted. Pt working with OT this am. Will continue to monitor.
--- NOTE | 2023-02-11 16:48 | NUR ---
Shift Summary Pt on Cpap this evening, titrated from 8-10l this am, then down to 7 this afternoon. Pt up with 1 person assist to chair and shower. Pt working with PT/OT during shift. Vss. No other acute changes noted. Will continue to monitor.
[2023-02-12 03:33] VITALS: BP 118/75
[2023-02-12 03:49] LABS: BASOPHILS ABSOLUTE AUTO 0.07 K/mm3 (0.00-0.23); BASOPHILS PERCENT AUTO 0 % (0-2); EOSINOPHILS ABSOLUTE AUTO 0.14 K/mm3 (0.00-0.68); EOSINOPHILS PERCENT AUTO 1 % (0-6); Hematocrit 36.6 % (33.0-51.0); Hemoglobin 10.8 g/dL (11.5-16.0); IMMATURE GRAN ABSOLUTE AUTO 0.09 K/mm3 (0.00-0.10); IMMATURE GRAN PERCENT AUTO 1 % (0-1); LYMPHOCYTES ABSOLUTE AUTO 1.83 K/mm3 (0.84-5.20); LYMPHOCYTES PERCENT AUTO 12 % (21-46); MONOCYTES ABSOLUTE AUTO 1.33 K/mm3 (0.16-1.47); MONOCYTES PERCENT AUTO 9 % (4-13); Mean Corpuscular HGB 24.4 pg (26.0-34.0); Mean Corpuscular HGB Conc 29.5 g/dL (31.5-36.5); Mean Corpuscular Volume 83 fL (80-100); Mean Platelet Volume 9.6 fL (9.1-12.4); NEUTROPHILS ABSOLUTE AUTO 12.18 K/mm3 (1.96-9.15); NEUTROPHILS PERCENT AUTO 78 % (41-73); Platelet Count 353 K/mm3 (150-400); RDW Coefficient Variation 20.6 % (11.7-14.2); RDW Standard Deviation 59.3 fL (35.1-46.3); Red Blood Cell Count 4.42 M/mm3 (3.80-5.20); White Blood Cell Count 15.64 K/mm3 (4.00-11.30)
[2023-02-12 04:31] LABS: Alanine Aminotransfer (ALT/SGP 58 U/L (12-78); Albumin, Blood 4.5 g/dL (3.4-5.0); Albumin/Globulin Ratio 1.6 (0.8-1.8); Alk Phos 111 U/L (50-136); Anion Gap 5 mmol/L (6-16); Aspartate Aminotrans (AST/SGOT 21 U/L (12-37); Bilirubin, Total 0.7 mg/dL (0.1-1.0); Blood Urea Nitrogen 42 mg/dL (8-24); CO2, Blood 30 mmol/L (21-32); Calcium, Blood 9.7 mg/dL (8.5-10.1); Chloride, Blood 106 mmol/L (98-108); Creatinine, Blood 0.81 mg/dL (0.40-1.00); Digoxin (Lanoxin) 1.12 ug/mL (0.80-2.00); Globulin, Blood 2.9 g/dL (2.2-4.0); Glomerular Filtration Rate 87 (60-); Glucose, Blood 100 mg/dL (70-99); Magnesium, Blood 2.8 mg/dL (1.6-2.4); Potassium, Blood 3.5 mmol/L (3.5-5.5); Sodium, Blood 141 mmol/L (136-145); Total Protein, Blood 7.4 g/dL (6.4-8.2)
--- NOTE | 2023-02-12 06:42 | NUR ---
SHIFT SUMMARY PATIENT ALERT, ORIENTED x1-2. VITALS STABLE, PATIENT ALTERNATING BETWEEN CPAP AND HI FLOW NC WITH O2 SAT >91%. PATIENT BECOMES LETHARGIC IF OFF CPAP FOR TOO LONG. PATIENT WILL FREQUENTLY TAKE O2 OUT OF NOSE AND DESAT BUT IS ABLE TO RECOVER ONCE O2 IS REPLACED. PATIENT PARTICIPATING IN MORE CARE DURING THE NIGHT. IS ABLE TO ASSIST STAFF WITH ATTENDS CHANGES AND IS TURNING HERSELF IN BED. PUREWICK AND ATTENDS IN PLACE. SIGNIFICANT OTHER AT BEDSIDE. NO OTHER CHANGES, WILL REPORT TO DAY SHIFT RN.
[2023-02-12 07:47] VITALS: BP 125/84
--- NOTE | 2023-02-12 14:00 | NUR ---
Received a call in the palliative care office from pt's Bhavesh Martinez. He stated he was returning a call from yesterday. He states he is in pt's room now and would like to speak with PC RN. Went to pt's room to speak with Juan. Juan reports that he is on his way out to go to the grocery store and will talk with this casualty underwriter when he returns.
--- NOTE | 2023-02-12 16:16 | NUR ---
WOUND CARE BLE DRESSINGS CHANGED PER ORDER. NEW PHOTOS AND ASSESSMENT IN HARD CHART. WOUNDS ARE IMPROVING WITH MEDIHONEY. DRESSING SHOULD BE CHANGED ON A MON, WED, SAT SCHEDULE. DISCUSSED WITH PT AND SPOUSE. WOUND HAVE SCANT DRAINAGE WE WILL REDRESS TODAY WITH NEXT DRESSING CHANGE ON SATURDAY.
[2023-02-12 16:45] VITALS: BP 108/74
--- NOTE | 2023-02-12 16:46 | NUR ---
Juan returned to pt's room this afternoon. Long conversation with Juan at the bedside. Sulaiman slept through the entire visit. Juan reports that they are currently living in [place] with pt's dtr, Remedios. Pt recently has revoked hospice twice in the last month or so per Juan. Juan reports that the plan is that they will be going home with [facility] services. Discussed the differences between HH and hospice services with him. He pulled out the [employer] paper he received in the ER and stated that he is interested in this program as well. LM with CM to check to see if a referral has already been sent to [employer]. He is hopeful that Sulaiman will be able to gain some strength back when she returns home. Attempted to discuss the severity of her multiple progressive illnesses. He voices that she is not ready for hospice. He states that Sulaiman's children also do not want hospice services at this time. 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 Encouraged the importance of self care. Discussed goal of a safe discharge plan to get them services they need to be successful at home and decrease readmission. He reports that they have been in contact with a transplant case manager through the [facility] who is working on getting them some in home care assistance. PC to continue advanced care planning with pt and family. Pt will be a high risk readmission.
--- NOTE | 2023-02-12 17:08 | NUR ---
Transfer note Pt alert, oriented x2, anxious. Pt 1 person assist to bathroom with walker. Pt encouraged to stay up in the recliner for majority of the day. Pt reports pain after wound dressing change with WC RN. Pt denies chest pain/pressure, nauses, dizziness and numb/tingling. Pt spo2 >90% on 7-9L o2 via nc, pt states breathing improved since yesterday. Tele sinus 80-90's, bp stable. Pt up to bathroom several time t/o shift. Vss. No othe acute change noted. Report given to Rn assuming care of patient.
[2023-02-12 19:24] VITALS: BP 107/69
--- NOTE | 2023-02-12 19:27 | NUR ---
SHIFT SUMMARY- PT TRANSFERED TO MEDICAL FLOOR FROM PCU TODAY. SPOUSE AT THE BEDSIDE, NO ACUTE CHANGE SINCE ADMIT. PT IN BED, CALL LIGHT IN REACH, SHE IS LAYING AT AN ANGLE IN THE BED BUT STATES SHE IS COMFORTABLE AND WANTS STAY WHERE SHE IS AT THIS TIME. PT IS ON CONT BIOX AND HAS A CPAP AT HS. SPOUSE STAYS THE NIGHT WITH THE PT. PER REPORT FROM THE DEPILATORY PAINTER HE WAS COUNCILED EARLIER IN THE DAY TO KEEP THE MESS MINIMIZED. PT APPEARS COMFORTABLE NO S&S OF DDISTRESS AT THE TIME OF BEDSIDE REPORT.
[2023-02-13 04:59] VITALS: BP 114/71
--- NOTE | 2023-02-13 07:38 | NUR ---
Shift Summary Pt lethargic and somnolent t/o shift. No c/o of pain or nausea. On cont BIOX, O2 reduced to 3L/min NC while asleep and SPO2 remained above 97% t/o the night. Incontinent voids. Spouse in room with pt. Pt slept well t/o the night. VSS.
[2023-02-13 07:39] VITALS: BP 107/78
[2023-02-13 08:38] LABS: BASOPHILS ABSOLUTE AUTO 0.07 K/mm3 (0.00-0.23); BASOPHILS PERCENT AUTO 1 % (0-2); EOSINOPHILS ABSOLUTE AUTO 0.18 K/mm3 (0.00-0.68); EOSINOPHILS PERCENT AUTO 1 % (0-6); Hematocrit 37.2 % (33.0-51.0); Hemoglobin 11.1 g/dL (11.5-16.0); IMMATURE GRAN PERCENT AUTO 1 % (0-1); LYMPHOCYTES ABSOLUTE AUTO 2.09 K/mm3 (0.84-5.20); LYMPHOCYTES PERCENT AUTO 14 % (21-46); MONOCYTES ABSOLUTE AUTO 1.32 K/mm3 (0.16-1.47); MONOCYTES PERCENT AUTO 9 % (4-13); Mean Corpuscular HGB 24.4 pg (26.0-34.0); Mean Corpuscular HGB Conc 29.8 g/dL (31.5-36.5); Mean Corpuscular Volume 82 fL (80-100); Mean Platelet Volume 9.6 fL (9.1-12.4); NEUTROPHILS ABSOLUTE AUTO 10.82 K/mm3 (1.96-9.15); NEUTROPHILS PERCENT AUTO 74 % (41-73); Platelet Count 391 K/mm3 (150-400); RDW Coefficient Variation 20.3 % (11.7-14.2); RDW Standard Deviation 58.4 fL (35.1-46.3); Red Blood Cell Count 4.54 M/mm3 (3.80-5.20); White Blood Cell Count 14.58 K/mm3 (4.00-11.30)
[2023-02-13 09:20] LABS: Bun/Creatinine Ratio 51.7 (12.0-20.0); Calcium, Blood 9.3 mg/dL (8.5-10.1); Creatinine, Blood 0.93 mg/dL (0.40-1.00); Potassium, Blood 3.3 mmol/L (3.5-5.5)
[2023-02-13 10:34] VITALS: BP 95/68
--- NOTE | 2023-02-13 12:21 | NUR ---
PER TELEMETRY PT ST WITH HR 97 AND BBB
--- NOTE | 2023-02-13 14:48 | NUR ---
PT REMOVED OXYGEN AND BIOX NOTED AT 85%, OXYGEN CANNULA PLACED IN NARES AND PT INSTRUCTED TO DEEP BREATHE. BIOX INCREASED TO 94% AFTER A FEW DEEP BREATHS
--- NOTE | 2023-02-13 14:49 | NUR ---
REPORT GIVEN TO LEN VALVERDE RN
[2023-02-13 15:06] VITALS: BP 110/85
[2023-02-13] MEDS ORDERED: NICODERM CQ1 EA24 TD (19:47)
[2023-02-13] MEDS ORDERED: VITAMIN D325 MC3 PO (19:48)
--- NOTE | 2023-02-13 20:12 | NUR ---
SHIFT SUMMARY- PT ALERT AND ORIENTED TO SELF AND FAMILY. PT WAS ABLE TO GET OOB AND WALK TO [facility] BATHR[facility] AT SHIFT CHANGE. FULL LINNEN CHANGE PERFORMED. PT WAS PROVIDED A WARM BLANKET AND ASSISTED WITH ATTEND AND GOWN CHANGE, IT APPEARS SHE SPILLED HER WATER CUP ON HERSELF. PLACED A LID ON THE CUP. PT IN BED, CALL LIGHT IN REACH, NO S&S OF DISTRESS AT THE TIME OF BEDSIDE REPORT.
[2023-02-13 20:28] VITALS: BP 120/93
[2023-02-14 03:03] VITALS: BP 98/70
[2023-02-14 04:57] LABS: BASOPHILS ABSOLUTE AUTO 0.06 K/mm3 (0.00-0.23); BASOPHILS PERCENT AUTO 0 % (0-2); EOSINOPHILS ABSOLUTE AUTO 0.09 K/mm3 (0.00-0.68); EOSINOPHILS PERCENT AUTO 1 % (0-6); Hematocrit 39.6 % (33.0-51.0); Hemoglobin 11.8 g/dL (11.5-16.0); IMMATURE GRAN ABSOLUTE AUTO 0.09 K/mm3 (0.00-0.10); IMMATURE GRAN PERCENT AUTO 1 % (0-1); LYMPHOCYTES ABSOLUTE AUTO 2.29 K/mm3 (0.84-5.20); LYMPHOCYTES PERCENT AUTO 16 % (21-46); MONOCYTES ABSOLUTE AUTO 1.08 K/mm3 (0.16-1.47); MONOCYTES PERCENT AUTO 8 % (4-13); Mean Corpuscular HGB 23.9 pg (26.0-34.0); Mean Corpuscular HGB Conc 29.8 g/dL (31.5-36.5); Mean Corpuscular Volume 80 fL (80-100); Mean Platelet Volume 10.2 fL (9.1-12.4); NEUTROPHILS ABSOLUTE AUTO 10.71 K/mm3 (1.96-9.15); NEUTROPHILS PERCENT AUTO 75 % (41-73); Platelet Count 449 K/mm3 (150-400); RDW Coefficient Variation 19.9 % (11.7-14.2); RDW Standard Deviation 56.4 fL (35.1-46.3); Red Blood Cell Count 4.93 M/mm3 (3.80-5.20); White Blood Cell Count 14.32 K/mm3 (4.00-11.30)
[2023-02-14 05:41] LABS: Bun/Creatinine Ratio 67.2 (12.0-20.0); Calcium, Blood 9.7 mg/dL (8.5-10.1); Creatinine, Blood 0.91 mg/dL (0.40-1.00); Potassium, Blood 3.5 mmol/L (3.5-5.5)
--- NOTE | 2023-02-14 05:43 | NUR ---
SHIFT SUMMARY NOC PT A/O 3-4. FORGETFUL AT TIMES. PT SPOUSE STAYED NIGHT BEDSIDE. PT PLEASANT AND COOPERATIVE WITH CARE. PT USED BSC WITH 1PA FWW/GB AND TOLERATED WELL. PT IS ON 6L/NC O2 AND CONTINUOS BIOX MAINTAINING SPO2 >93%. PT ON TELE RUNNING NSR @ 90 BPM. NO ACUTE CHANGES TO REPORT. PT IS CURRENTLY RESTING WITH BED ALARM ON, BED IN LOWEST POSITION, AND CALL LIGHT WITHIN REACH.
[2023-02-14 07:11] VITALS: BP 96/68
--- NOTE | 2023-02-14 08:35 | NUR ---
Received a phone call from catalino Martinez'marquis S.O. He is in her room and is requesting PC to come speak with them. Went to Sulaiman's room. She is awake and reviewing a brochure about the [place] [facility] program. Answered questions from both of them about the program. They are interested in this program when she goes home with services. Sulaiman reports she is able to get up an ambulate to the bathroom now. PC to continue to assist with advanced care planning prn.
[2023-02-14 15:43] VITALS: BP 100/70
--- NOTE | 2023-02-14 18:34 | NUR ---
SHIFT SUMMARY- NO ACUTE EVENTS THIS SHIFT. PT'S PAIN WELL CONTROLLED WITH PAIN MEDS. X1 ASSIST TO BSC. CALLS APPROPRIATELY.
[2023-02-14 19:33] VITALS: BP 93/70
[2023-02-15 03:04] VITALS: BP 92/70
--- NOTE | 2023-02-15 05:14 | NUR ---
SHIFT SUMMARY NOC PT A/O X 3-4. NO ACUTE CHANGES. PT SPOUSE STAYED NIGHT. PT O2 IS BACK AT BASELINE 3L/NC WHILE MAINTAINING SPO2 >92%. PT WAS ABLE TO TRANSFER FROM BED TO BSC WITH SBA. PT ON TELE RUNNING SINUS RHYTHM @ 82 BPM. PT PLANNING ON D/C TODAY WITH SPOUSE. PT IS CURRENTLY RESTING WITH BED IN LOWEST POSITION, AND CALL LIGHT WITHIN REACH.
[2023-02-15 07:19] VITALS: BP 93/72
--- NOTE | 2023-02-15 11:20 | NUR ---
Received a phone call from Juan. Went to pt's room. Spoke with Juan and Sulaiman. She is planning to be discharged today with [facility]. Faxed referral form with facesheet and progress notes to the [place] [facility] program. They are in agreement with plan for and [place] [facility]. Juan has questions about getting a referral to a maintenance data analyst at [facility]. Encouraged them to contact her current maintenance data analyst with questions re: referral. Explained her CHF with low EF and optimization with medications. Sulaimna stated "I don't want to hear this." Emotional support given.
[2023-02-15 15:10] VITALS: BP 89/68
[2023-02-15] MEDS ORDERED: LOSA25 PO (15:27)
[2023-02-15] MEDS ORDERED: HYDPAM50 PO (15:27)
[2023-02-15] MEDS ORDERED: SPIR25 PO (15:28)
[2023-02-15] MEDS ORDERED: METO25ER PO (15:28)
[2023-02-15] MEDS ORDERED: MIRALAX17 GM PO (15:28)
[2023-02-15] MEDS ORDERED: SOAANZ20 M1 PO (15:29)
--- NOTE | 2023-02-15 16:25 | NUR ---
Patient AOx4, plan to discharge today. RT home oxygen evaluation completed, O2 ready for patient to go home to. 4L O2 via NC. Reviewed discharge meds with patient, changed dressings on BLE and applied medihoney and new dressing. Removed powerglide from RUE. Patient left medical floor at 1600.
--- NOTE | 2023-02-18 14:45 | NUR ---
Pt's s/o Juan called Palliative Care this am with concerns, stating they haven't heard from [place] [facility] program or [facility] since pt discharged from the hospital "last week". He also mentioned being unable to nut picker some of the ordered discharge medications due to non-coverage by insurance. He sounded frantic initially, so I took his information and told him I would look into all of this and call him and the pt back. Noted during chart review that the pt only discharged 3 days ago on saturday afternoon, and today is Saturday. I followed up with [facility] and re-sent pt's information to them. Also followed up with phone numbers for [facility] and [facility], along with [facility] information. I returned the t/c to Juan and kamryn and explained these services are not immediately dispatched to see pt's, and both of them stated relief. We also reviewed the list of discharge medications together by phone, as pt had questions about the newly added medications, which they state they have now filled with the exception of an OTC stool softener, and they have now been contatcted by [facility] regarding caregiver support since our previous call, and both pt and s/o report feeling better about next steps.
== END 2023-02-15 15:52 | disposition home or self-care (01) | DRG 291 ==
LOC: ER 01:57 → ICUW 06:03 → MEDS 06:03 → PCU 06:03 → MEDS 10:25 → ICUW 10:35 → MEDS 16:19 → PCU 02-05 06:44 → MEDS 02-12 17:54
PROVIDERS: Emergency Medicine; Family Medicine; Internal Medicine; Internal Medicine Cardiovascular Disease; ADMIT Student in an Organized Health Care Education/Training Program
PROC: 4A033R1 Measurement of Arterial Saturation, Peripheral, Percutaneous Approach (ICD-10-PCS; principal; 2023-02-06)
PROC: 4A133R1 Monitoring of Arterial Saturation, Peripheral, Percutaneous Approach (ICD-10-PCS; 2023-02-06)
PROC: 5A09357 Assistance with Respiratory Ventilation, Less than 24 Consecutive Hours, Continuous Positive Airway Pressure (ICD-10-PCS; 2023-02-06)
PROC: 5A0945A Assistance with Respiratory Ventilation, 24-96 Consecutive Hours, High Flow/Velocity Cannula (ICD-10-PCS; 2023-02-08)
DX: I11.0 Hypertensive heart disease with heart failure (principal); I50.23 Acute on chronic systolic (congestive) heart failure; J96.21 Acute and chronic respiratory failure with hypoxia; J96.22 Acute and chronic respiratory failure with hypercapnia; E87.1 Hypo-osmolality and hyponatremia; N17.9 Acute kidney failure, unspecified; L03.115 Cellulitis of right lower limb; L03.116 Cellulitis of left lower limb; L97.929 Non-pressure chronic ulcer of unspecified part of left lower leg with unspecified severity; L97.919 Non-pressure chronic ulcer of unspecified part of right lower leg with unspecified severity; E87.4 Mixed disorder of acid-base balance; Z51.5 Encounter for palliative care; I42.7 Cardiomyopathy due to drug and external agent; I48.0 Paroxysmal atrial fibrillation; G89.4 Chronic pain syndrome; F11.10 Opioid abuse, uncomplicated; J84.89 Other specified interstitial pulmonary diseases; J44.9 Chronic obstructive pulmonary disease, unspecified; F15.10 Other stimulant abuse, uncomplicated; I50.82 Biventricular heart failure; I95.9 Hypotension, unspecified; E03.9 Hypothyroidism, unspecified; E87.6 Hypokalemia; I27.20 Pulmonary hypertension, unspecified; M06.9 Rheumatoid arthritis, unspecified; G47.33 Obstructive sleep apnea (adult) (pediatric); I08.1 Rheumatic disorders of both mitral and tricuspid valves; E83.41 Hypermagnesemia; R74.01 Elevation of levels of liver transaminase levels; K76.1 Chronic passive congestion of liver; Z20.822 Contact with and (suspected) exposure to COVID-19; Z86.79 Personal history of other diseases of the circulatory system; Z90.49 Acquired absence of other specified parts of digestive tract; Z98.890 Other specified postprocedural states; Z88.8 Allergy status to other drugs, medicaments and biological substances; Z91.040 Latex allergy status; Z79.899 Other long term (current) drug therapy; Z79.01 Long term (current) use of anticoagulants; Z79.2 Long term (current) use of antibiotics; Z79.51 Long term (current) use of inhaled steroids; Z79.52 Long term (current) use of systemic steroids; Z99.81 Dependence on supplemental oxygen
CPT/HCPCS: 0241U; 36415; 36600; 71045; 71046; 71260; 80048; 80053; 80069; 80162; 80202; 80400; 82533; 82803; 83605; 83735; 83880; 84100; 84132; 84443; 84484; 85025; 85027; 85520; 85610; 85730; 86140; 87040; 87081; 93005; 93010; 93306; 93308; 93922; 93970; 94640; 94660; 94664; 94760; 94761; 94762; 96365-59; 96366; 96367; 96375-59; 97110; 97112; 97162; 97166; 97530; 97535; 99285-25; A9270; C1751; J0696; J0834; J1120; J1160; J1170; J1644; J1650; J1940; J2405; J3370; J7050; J7512; P9047; Q9967

== ENCOUNTER 2023-02-22 04:48 | Emergency (ER) | payer OTHER ==
[~2023-02-22] VITALS: Ht 154.9 cm; Wt 81.7 kg
[~2023-02-22 04:48] MED LIST changes: +HYDPAM50 PO; +LOSA25 PO; +METO25ER PO; +MIRALAX17 GM PO; +NICODERM CQ1 EA24 TD; +SOAANZ20 M1 PO; +SPIR25 PO; +VITAMIN D325 MC3 PO
[2023-02-22 05:16] LABS: BASOPHILS ABSOLUTE AUTO 0.11 K/mm3 (0.00-0.23); BASOPHILS PERCENT AUTO 1 % (0-2); EOSINOPHILS ABSOLUTE AUTO 0.13 K/mm3 (0.00-0.68); EOSINOPHILS PERCENT AUTO 1 % (0-6); Hematocrit 43.9 % (33.0-51.0); Hemoglobin 13.2 g/dL (11.5-16.0); IMMATURE GRAN ABSOLUTE AUTO 0.19 K/mm3 (0.00-0.10); IMMATURE GRAN PERCENT AUTO 1 % (0-1); LYMPHOCYTES ABSOLUTE AUTO 3.34 K/mm3 (0.84-5.20); LYMPHOCYTES PERCENT AUTO 22 % (21-46); MONOCYTES ABSOLUTE AUTO 1.01 K/mm3 (0.16-1.47); MONOCYTES PERCENT AUTO 7 % (4-13); Mean Corpuscular HGB Conc 30.1 g/dL (31.5-36.5); Mean Corpuscular Volume 80 fL (80-100); NEUTROPHILS ABSOLUTE AUTO 10.54 K/mm3 (1.96-9.15); NEUTROPHILS PERCENT AUTO 69 % (41-73); RDW Coefficient Variation 19.5 % (11.7-14.2); RDW Standard Deviation 54.8 fL (35.1-46.3); White Blood Cell Count 15.32 K/mm3 (4.00-11.30)
[2023-02-22 05:18] LABS: Mean Platelet Volume 11.4 fL (9.1-12.4); Platelet Count 314 K/mm3 (150-400)
[2023-02-22 05:30] LABS: Albumin, Blood 3.5 g/dL (3.4-5.0); Albumin/Globulin Ratio 0.9 (0.8-1.8); Bilirubin, Total 0.5 mg/dL (0.1-1.0); Bun/Creatinine Ratio 38.3 (12.0-20.0); Calcium, Blood 8.8 mg/dL (8.5-10.1); Creatinine, Blood 0.68 mg/dL (0.40-1.00); Globulin, Blood 3.7 g/dL (2.2-4.0); Potassium, Blood 3.9 mmol/L (3.5-5.5); Total Protein, Blood 7.2 g/dL (6.4-8.2)
[2023-02-22 08:51] VITALS: BP 116/87
== END 2023-02-22 10:21 | disposition home or self-care (01) ==
LOC: ER 04:48
PROVIDERS: Emergency Medicine
DX: I50.9 Heart failure, unspecified (principal); J96.11 Chronic respiratory failure with hypoxia; J44.9 Chronic obstructive pulmonary disease, unspecified; Z87.891 Personal history of nicotine dependence; Z88.8 Allergy status to other drugs, medicaments and biological substances; Z88.6 Allergy status to analgesic agent; Z88.5 Allergy status to narcotic agent; Z91.040 Latex allergy status; Z79.899 Other long term (current) drug therapy; Z79.52 Long term (current) use of systemic steroids
CPT/HCPCS: 36415; 71046; 80053; 83690; 83880; 84145; 84484; 85025; 93005; 93010; 94640; 94664; 99285-25

== ENCOUNTER 2023-08-08 09:02 | Emergency (ER) | payer OTHER ==
[~2023-08-08] VITALS: Ht 154.9 cm; Wt 78.0 kg
[~2023-08-08 09:02] MED LIST changes: +BUSPIRONE HCL5 M6 PO; +DIGOX125 MC1; +ELIQUIS5 M3 PO; +FUROSEMIDE40 MG PO
[2023-08-08 09:16] VITALS: BP 125/81
== END 2023-08-08 10:34 | disposition left against medical advice (07) ==
LOC: ER 09:02
DX: R07.9 Chest pain, unspecified (principal); Z87.891 Personal history of nicotine dependence; J44.9 Chronic obstructive pulmonary disease, unspecified; Z88.8 Allergy status to other drugs, medicaments and biological substances; Z88.6 Allergy status to analgesic agent; Z88.5 Allergy status to narcotic agent; Z91.040 Latex allergy status; Z79.899 Other long term (current) drug therapy
CPT/HCPCS: 71046; 93005; 93010; 99285-25